=== PATIENT | female | born 1965 | race Caucasian/White ===

== ENCOUNTER 2019-10-24 11:43 | Emergency (ER) | payer OTHER, SELFPAY ==
--- NOTE | ~2019-10-24 | XR_ITS ---
XR foot LT 2V DATE: 10/24/2019 12:21 INDICATION: Dorsal laceration of foot TECHNIQUE: AP and lateral views COMPARISON: None FINDINGS: Status post bunionectomy. No fracture, dislocation, periosteal reaction or bone destruction, subcutaneous emphysema or radiopaq ue foreign body is evident. IMPRESSION: Status post bunionectomy No acute finding noted Reviewed, dictated and finalized at location A. UNICATIONS PROGRAM MANAGER
[2019-10-24 11:47] VITALS: BP 156/107; PULSE 98; RESP 18; TEMP 37; O2SAT 99
--- NOTE | 2019-10-24 12:04 | ED.WOUNDLAC ---
HPI - Wound/Laceration General Chief Complaint: Wound/Laceration Stated Complaint: Laceration to Left Foot Time Seen by Provider: 10/24/19 11:54 Source: patient Mode of arrival: ambulatory Limitations: no limitations History of Present Illness HPI narrative: This is a 54-year-old female that presents the emergency department for laceration sustained 14 hours prior to arrival. Reports last night a glass fell off of the kitchen island. Reports it landed on the top of her left foot. Reports a laceration to the area. Reports they cleaned the wound and tried to use it [id number] tissue adhesive. Reports the wound opened back up and she was having some bleeding. Denies fever, erythema, or abnormal drainage. Related Data Allergies Allergy/AdvReac Type Severity Reaction Status Date / Time No Known Allergies Verified 10/24/19 11:49 Review of Systems Review of Systems: Narrative: CONSTITUTIONAL: Denies fever SKIN: Reports laceration MUSCULOSKELETAL: Denies joint pain NEUROLOGIC: Denies numbness All systems reviewed & are unremarkable except as noted in HPI and below PMFSH Past Medical History Medical History (Updated 10/24/19 @ 14:15 by Lynn Bragg PA-C) History of osteopenia Social History Social History Smoking status: Never smoker Alcohol intake: current Exam Narrative: Exam Narrative: GENERAL: Well-appearing, well-nourished, and in no acute distress. HEAD: Normocephalic, atraumatic. EYES: EOMI. EXTREMITIES: Normal range of motion. No edema or obvious deformity. 2cm linear laceration into subcutaneous tissue over dorsal surface of foot SKIN: Warm, dry, no rash. NEURO: No focal deficits. Alert and oriented x3. PSYCH: Normal mood and affect Course Consultations Consultation #1: Spoke with Dr. Sierra about patient work-up who reports as long as I suture wound in 24 hours it is acceptable for closure Vital Signs Vital signs: Vital Signs Temperature 98.6 F 10/24/19 11:47 Pulse Rate 98 10/24/19 11:47 Respiratory Rate 18 10/24/19 11:47 Blood Pressure 156/107 H 10/24/19 11:47 Pulse Oximetry 99 10/24/19 11:47 Temperature 98.6 F 10/24/19 11:47 Pulse Rate 98 10/24/19 11:47 Respiratory Rate 18 10/24/19 11:47 Blood Pressure 156/107 H 10/24/19 11:47 Pulse Oximetry 99 10/24/19 11:47 MDM - Wound/Laceration MDM Narrative Medical decision making narrative: Patient presents to the emergency department for foot last patient sustained last night. Patient was updated on tetanus. Spoke with Dr. Sierra about patient and work-up. Patient's wound is 14 hours old, he reports I have 24 hours to suture wound. Patient's wound was thoroughly irrigated and closed with sutures. Patient will be started on a prophylactic antibiotic since this is a bit of an older wound. Patient and family were instructed on wound care. She is to follow-up with primary care doctor. She was given warnings to return to the ER Imaging Data Radiologist's impression: ITS Impressions Foot X-Ray 10/24/19 12:52 IMPRESSION: Status post bunionectomy No acute finding noted Critical Care Time Critical Care Time Critical Care Time: No Discharge Plan Discharge Clinical Impression: Laceration Patient Disposition: Home, Self-Care Condition: Stable Instructions: Antibiotic Form, Care For Your Stitches (ED), Laceration (ED) Additional Instructions: Return to the emergency department if you experience fever, redness or swelling of your wound, abnormal drainage from your wound, or any other symptoms that are concerning to you. Apply antibiotic ointment daily. Do not soak the wound. Clean with mild soap and water daily. Try to keep weight off of the left foot as much as possible to allow for healing Follow-up with your primary care doctor for suture removal in 10-14 days. Prescriptions: New cephalexin 500 mg capsule 500 mg PO Q6H 5 Days Qty: 20 RF: 0 Follow-up
[2019-10-24] MEDS: TETANUS,DIPHTHERIA,AC PERTUSSIS ADULT 0.5 ML (ADACEL) IM (12:24)
[2019-10-24] MEDS: LIDO 1%/EPINEPHRINE 1:100,000 20 ML VIAL INFILTRATE (12:41)
[2019-10-24 14:21] VITALS: BP 130/78; PULSE 70; RESP 18; O2SAT 98
== END 2019-10-24 14:25 | disposition home or self-care (01) ==
PROVIDERS: Emergency Provider Emergency Medicine; PCP Internal Medicine
DX: S91.312A Laceration without foreign body, left foot, initial encounter (principal); M85.80 Other specified disorders of bone density and structure, unspecified site; Z23 Encounter for immunization
CPT/HCPCS: 12001; 73620; 90471; 90715; 99283

== ENCOUNTER 2020-05-11 00:25 | Outpatient (CLI) | payer OTHER, SELFPAY ==
[2020-05-11 18:19] LABS: SARS-CoV-2 RNA PCR Negative
== END 2020-05-11 00:26 | disposition home or self-care (01) ==
LOC: ANHCOVIDDT 00:26
PROVIDERS: PCP Internal Medicine; Visit Provider Internal Medicine Gastroenterology
DX: Z01.812 Encounter for preprocedural laboratory examination (principal); Z20.828 Contact with and (suspected) exposure to other viral communicable diseases
CPT/HCPCS: 87635; C9803; U0003

== ENCOUNTER 2020-05-13 00:45 | Day surgery (SDC) | payer OTHER, SELFPAY ==
[2020-05-05 12:57] VITALS: BMI 23.4
[2020-05-13 06:33] VITALS: BP 150/82; PULSE 76; RESP 16; TEMP 36.8; O2SAT 96
[2020-05-13] MEDS: LACTATED RINGERS 1,000 ML 150 ML IV CONT (06:56)
--- NOTE | 2020-05-13 07:21 | P.HP_ITS ---
History of Present Illness History of Present Illness Consent: Risks, benefits, and alternatives have been discussed and questions answered. Patient agrees to proceed with procedure. Chief complaint: Neoplasm Screening Narrative: Daniela Ricks is a 54 year old W female referred for screening colonoscopy secondary history of colonic polyps last colonoscopy was 5 years ago. Patient is asymptomatic and there is no family history of colon polyps or colon cancer. [facility] Past Medical History Medical History History of osteopenia Social History Social History Smoking status: Never smoker Alcohol intake: current Gender identity (if verbalized by the patient): Female Sexual Orientation (if Verbalized by the Patient): Straight or Heterosexual Meds Home Medications and Allergies Home Medications Medication Instructions Recorded Confirmed Type alendronate 70 mg PO WEEKLY 05/05/20 05/13/20 History ergocalciferol (vitamin D2) 50,000 unit PO DAILY 05/05/20 05/13/20 History paroxetine HCl [Paxil] 20 mg PO DAILY 05/05/20 05/13/20 History Allergies Allergy/AdvReac Type Severity Reaction Status Date / Time No Known Allergies Verified 05/13/20 06:45 Vital Signs Vital Signs - 24 hr 05/13/20 06:33 Temperature 36.8 C Pulse Rate 76 Respiratory Rate 16 Blood Pressure 150/82 H Pulse Oximetry 96 Exam Const: Orientation/consciousness: patient oriented x3 Resp: Auscultation: clear to auscultation bilaterally Cardio: Rate: regular rate Rhythm: regular rhythm Heart sounds: no murmurs GI: GI Palp: Yes Soft to palpation, No Tenderness to palpation present (GI), Yes No hepatosplenomegaly present and No Palpable mass present Auscultation: normal bowel sounds Neuro: General: patient oriented x3 and no focal motor deficits Extrem: General: no pedal edema Assessment and Plan Additional Plan Screening colonoscopy secondary history of colonic polyps
--- NOTE | 2020-05-13 07:25 | WPDANESEPPF ---
Anes - Initial Pre Proc Eval Procedure: Operation Date: 05/13/20 08:00 Proposed Procedures p Screening Colonoscopy - Joe Mora MD Date/Time: 05/13/20 07:25 Surgeon: Joe Mora MD Pre Op Diagnosis: Neoplasm Screening Patient Data Age: 54 Gender: F Height: 5 ft 5 in Weight: 61.4 kg Last Vital Signs Temp 98.3 F 05/13/20 06:33 Pulse 76 05/13/20 06:33 Resp 16 05/13/20 06:33 BP 150/82 H 05/13/20 06:33 Pulse Ox 96 05/13/20 06:33 Allergies Allergy/AdvReac Type Severity Reaction Status Date / Time No Known Allergies Verified 05/13/20 06:45 Home Medications Medication Instructions Recorded Confirmed Type alendronate 70 mg PO WEEKLY 05/05/20 05/13/20 History ergocalciferol (vitamin D2) 50,000 unit PO DAILY 05/05/20 05/13/20 History paroxetine HCl [Paxil] 20 mg PO DAILY 05/05/20 05/13/20 History Patient hx anesthesia problems: none Family hx anesthesia problems: none PMFSH Past Medical History Medical History (Updated 05/13/20 @ 07:25 by Marquise Morgan MD) Healthy adult History of osteopenia Social History Social History Smoking status: Never smoker Alcohol intake: current Gender identity (if verbalized by the patient): Female Sexual Orientation (if Verbalized by the Patient): Straight or Heterosexual Anes - Eval Final PreProcedure Day of Procedure 05/13/20 07:25 Patient weight: normal Heart: regular rate and rhythm Lungs: clear to auscultation Airway: Mallampati scale class II Neurological: alert and oriented Last oral intake: >/= 8 hours ASA classification: I Emergent: no Anesthetic plan: proceed Anesthesia type and monitoring: general and standard monitoring Informed Consent: The patient's anesthetic plan and its attendant risks and benefits were discussed with the patient/family/POA. Questions were solicited and answers provided to the satisfaction of the patient/family/POA.
[2020-05-13 08:18] VITALS: BP 121/68; PULSE 64; RESP 16; O2SAT 98
[2020-05-13 08:28] VITALS: BP 129/80; PULSE 71; RESP 16; O2SAT 98
[2020-05-13 08:38] VITALS: BP 155/80; PULSE 73; RESP 18; O2SAT 98
[2020-05-13 08:55] VITALS: BP 150/80; PULSE 75; RESP 18; O2SAT 98
--- NOTE | 2020-05-13 09:08 | SUR.PHASEII ---
0845 pt very sleepy difficult to stay awake, pt states she didnt sleep alot during night fue to prep, pt assisted up to chair, drinking juice. 0855 pt awake and alert now, instructions given,
== END 2020-05-13 09:05 | disposition home or self-care (01) ==
PROVIDERS: PCP Internal Medicine; Visit Provider Internal Medicine Gastroenterology
PROC: 0DJD8ZZ Inspection of Lower Intestinal Tract, Via Natural or Artificial Opening Endoscopic (ICD-10-PCS; CPT 45378; principal; 2020-05-13 08:00)
DX: Z12.11 Encounter for screening for malignant neoplasm of colon (principal); Z86.010 Personal history of colon polyps; K57.30 Diverticulosis of large intestine without perforation or abscess without bleeding; K64.8 Other hemorrhoids
CPT/HCPCS: 45378; J2704; J7120

== ENCOUNTER → 2020-05-19 13:17 | Outpatient (CLI) | payer OTHER, SELFPAY ==
--- NOTE | ~2020-05-19 | DEXA_ITS ---
Bone Density Report Name: Daniela Ricks Age: 54 Sex: Female Ethnicity: White Date of : 1965 Indication: osteopenia; monitoring treatment; parental hip fracture; postmenopausal Referring Provider: LULU, KIBRY Iqbal Study: Bone densitometry was performed. Exam Date: May 19, 2020 Accession number: [id number] Bone Density: Region BMD T-score Z-score Classification AP Spine (L1-L4) 0.890 -1.4 -0.3 Osteopenia Femoral Neck (Left) 0.654 -1.8 -0.7 Osteopenia Total Hip (Left) 0.732 -1.7 -1.0 Osteopenia Femoral Neck (Right) 0.612 -2.1 -1.0 Osteopenia Total Hip (Right) 0.742 -1.6 -0.9 Osteopenia Total Hip Mean 0.737 -1.7 -1.0 Osteopenia World Health Organization criteria for BMD impression classify patients as: Normal (T-score at or above -1.0), Osteopenia (T-score between -1.0 and -2.5), or Osteoporosis (T-score at or below -2.5). 10-year Fracture Risk: FRAX not reported because: Treated for osteoporosis Previous Exams: Region Exam Age BMD T-score BMD Change BMD Change Date g/cm2 vs Baseline vs Previous AP Spine(L1-L4) 05/19/2020 54 0.890 -1.4 0.018 -0.016 01/31/2018 52 0.907 -1.3 0.034* 0.034* 12/21/2015 50 0.872 -1.6 Total Hip(Left) 05/19/2020 54 0.732 -1.7 0.025 -0.031* 01/31/2018 52 0.762 -1.5 0.055* 0.055* 12/21/2015 50 0.707 -1.9 Total Hip(Right) 05/19/2020 54 0.742 -1.6 0.032* -0.019 01/31/2018 52 0.761 -1.5 0.051* 0.051* 12/21/2015 50 0.711 -1.9 *Denotes significance at 95% confidence level, LSC for AP Spine = 0.022 g/cm2, LSC for Total Hip = 0.027 g/cm2 Clinical Information Provided by Patient: Parent has had a hip fracture Is being treated for osteoporosis Has used the following medications: Fosamax (i.e. alendronate), Vitamin D Patient maximum height was 65 Menopause Age: 43 No regular weight bearing exercise Drinks caffeinated beverages Onset of menses at age 14 Number of children 2 Impression: The patient has low bone mass, based on the Right Femoral Neck T-score. The patient has risk factors, including: parental hip fracture. The BMD for the Total Hip(Left) decreased, changing by -0.031 since the last DXA exam. Discussion: SIGNIFICANT BONE LOSS OBSERVED. Adherence to therapy (including calcium and vitamin D intake) should be assessed. If compliance is not a factor, review manage
== END ==
PROVIDERS: PCP Internal Medicine; Visit Provider Internal Medicine
DX: M81.0 Age-related osteoporosis without current pathological fracture (principal); M85.88 Other specified disorders of bone density and structure, other site; M85.852 Other specified disorders of bone density and structure, left thigh; M85.851 Other specified disorders of bone density and structure, right thigh
CPT/HCPCS: 77080

== ENCOUNTER → 2020-05-19 13:24 | Outpatient (CLI) | payer OTHER, SELFPAY ==
--- NOTE | ~2020-05-19 | MM_ITS ---
EXAMINATION: MM scrn ketty implant BI w guillaume HISTORY: Screening mammogram TECHNIQUE: Craniocaudal and mediolateral oblique 3-D tomosynthesis images with implant displacement a nd synthetic 2-D images were generated. Craniocaudal and mediolateral oblique views of the breasts wi thout implant displacement were obtained using full field digital mammography. CAD analysis was submi tted and interpreted. COMPARISON: Comparison to multiple prior studies sequentially, with oldest reviewed study dated 02/2016. BREAST PARENCHYMAL COMPOSITION: There are scattered areas of fibroglandular density. FINDINGS: There is no evidence of suspicious mass, calcification, or architectural distortion to sugg est malignancy in either breast. There has been no suspicious interval change. IMPRESSION: 1. No mammographic evidence of malignancy. 2. Recommend routine screening mammography in one year. BI-RADS Category 1: Negative Reviewed, dictated and finalized at location A.
== END ==
PROVIDERS: PCP Internal Medicine; Visit Provider Nurse Practitioner
DX: Z12.31 Encounter for screening mammogram for malignant neoplasm of breast (principal)
CPT/HCPCS: 77063; 77067

== ENCOUNTER → 2021-06-01 14:52 | Outpatient (CLI) | payer OTHER, SELFPAY ==
--- NOTE | ~2021-06-01 | MM_ITS ---
EXAMINATION: MM scrn ketty implant BI w guillaume HISTORY: Screening mammogram TECHNIQUE: Craniocaudal and mediolateral oblique 3-D tomosynthesis images with implant displacement a nd synthetic 2-D images were generated. Craniocaudal and mediolateral oblique views of the breasts wi thout implant displacement were obtained using full field digital mammography. CAD analysis was submi tted and interpreted. COMPARISON: Comparison to multiple prior studies sequentially, with oldest reviewed study dated 02/2016. BREAST PARENCHYMAL COMPOSITION: There are scattered areas of fibroglandular density. FINDINGS: There are bilateral subglandular saline implants. There is no evidence of suspicious mass, calcification, or architectural distortion to suggest malignancy in either breast. There has been no suspicious interval change. IMPRESSION: 1. No mammographic evidence of malignancy. 2. Recommend routine screening mammography in one year. BI-RADS Category 1: Negative Reviewed, dictated and finalized at location A.
== END ==
PROVIDERS: Visit Provider Nurse Practitioner
DX: Z12.31 Encounter for screening mammogram for malignant neoplasm of breast (principal)
CPT/HCPCS: 77063; 77067

== ENCOUNTER → 2022-06-08 13:16 | Outpatient (CLI) | payer OTHER, SELFPAY ==
--- NOTE | ~2022-06-08 | MM_ITS ---
EXAMINATION: MM scrn ketty implant BI w guillaume HISTORY: Screening mammogram TECHNIQUE: Craniocaudal and mediolateral oblique 3-D tomosynthesis images with implant displacement a nd synthetic 2-D images were generated. Craniocaudal and mediolateral oblique views of the breasts wi thout implant displacement were obtained using full field digital mammography. CAD analysis was submi tted and interpreted. COMPARISON: 06/01/2021, 05/19/2020, 03/24/2019 BREAST PARENCHYMAL COMPOSITION: The breasts are heterogeneously dense, which may obscure small masses . FINDINGS: There is no evidence of suspicious mass, calcification, or architectural distortion to sugg est malignancy in either breast. There has been no suspicious interval change. IMPRESSION: 1. No mammographic evidence of malignancy. 2. Recommend routine screening mammography in one year. BI-RADS Category 1: Negative Reviewed, dictated and finalized at location A.
--- NOTE | ~2022-06-08 | DEXA_ITS ---
Bone Density Report Name: LIEDA MULTANI Age: 56 Sex: Female Ethnicity: White Date of : 1965 Indication: osteopenia; monitoring treatment; parental hip fracture; postmenopausal Referring Provider: MELISSA, ANTONINA Study: Bone densitometry was performed. Exam Date: June 08, 2022 Accession number: [id number] Bone Density: Region BMD T-score Z-score Classification AP Spine (L1-L4) 0.921 -1.1 0.1 Osteopenia Femoral Neck (Left) 0.647 -1.8 -0.6 Osteopenia Total Hip (Left) 0.753 -1.5 -0.7 Osteopenia Femoral Neck (Right) 0.634 -1.9 -0.8 Osteopenia Total Hip (Right) 0.737 -1.7 -0.9 Osteopenia Total Hip Mean 0.745 -1.6 -0.8 Osteopenia World Health Organization criteria for BMD impression classify patients as: Normal (T-score at or above -1.0), Osteopenia (T-score between -1.0 and -2.5), or Osteoporosis (T-score at or below -2.5). 10-year Fracture Risk: FRAX not reported because: Treated for osteoporosis Previous Exams: Region Exam Age BMD T-score BMD Change BMD Change Date g/cm2 vs Baseline vs Previous AP Spine(L1-L4) 06/08/2022 56 0.921 -1.1 0.049* 0.031* 05/19/2020 54 0.890 -1.4 0.018 -0.016 01/31/2018 52 0.907 -1.3 0.034* 0.034* 12/21/2015 50 0.872 -1.6 Total Hip(Left) 06/08/2022 56 0.753 -1.5 0.046* 0.021 05/19/2020 54 0.732 -1.7 0.025 -0.031* 01/31/2018 52 0.762 -1.5 0.055* 0.055* 12/21/2015 50 0.707 -1.9 Total Hip(Right) 06/08/2022 56 0.737 -1.7 0.027 -0.005 05/19/2020 54 0.742 -1.6 0.032* -0.019 01/31/2018 52 0.761 -1.5 0.051* 0.051* 12/21/2015 50 0.711 -1.9 *Denotes significance at 95% confidence level, LSC for AP Spine = 0.022 g/cm2, LSC for Total Hip = 0.027 g/cm2 Clinical Information Provided by Patient: Parent has had a hip fracture Is being treated for osteoporosis Has used the following medications: Fosamax (i.e. alendronate), Vitamin D, MTV Patient maximum height was 65.0 Menopause Age: 43 No regular weight bearing exercise Drinks caffeinated beverages Onset of menses at age 15 Number of children 2 Impression: The patient has low bone mass, based on the Right Femoral Neck T-score. The patient has risk factors, including: parental hip fracture. No significant bone loss was observed. Discussion: MARIELLE
== END ==
PROVIDERS: PCP Internal Medicine; Visit Provider Nurse Practitioner
DX: Z12.31 Encounter for screening mammogram for malignant neoplasm of breast (principal); M85.88 Other specified disorders of bone density and structure, other site; M85.852 Other specified disorders of bone density and structure, left thigh; M85.851 Other specified disorders of bone density and structure, right thigh
CPT/HCPCS: 77063; 77067; 77080

== ENCOUNTER → 2023-04-10 08:42 | Outpatient (CLI) | payer OTHER, SELFPAY ==
--- NOTE | ~2023-04-10 | CT_ITS ---
EXAMINATION: CT abdomen wo con DATE: 04/10/2023 09:04 INDICATION: Abdominal pain, left flank pain, low back pain. TECHNIQUE: Computed tomography (CT) of the abdomen was performed without intravenous contrast. Automa candice exposure control and iterative reconstruction technique were employed. Exam dose: 164.46 mGy-cm total exam DLP. COMPARISON: None. FINDINGS: Status post bilateral augmentation mammoplasty. The lung bases are clear of infiltrate or consolidation. Normal heart size. No pericardial or pleural effusion. Very small sliding hiatal hernia. The liver, gallbladder, bile ducts, pancreatic duct, spleen, and adrenal glands and kidneys appear un remarkable on this limited noncontrast examination. Normal caliber of the abdominal aorta. No intraperitoneal or retroperitoneal mass lesion or adenopath y or ascites is noted. There is a prominent amount of fecal material in the colon but no bowel obstruction is evident. Small fat-containing umbilical hernia. The pelvis is excluded from this examination. Mild degenerative changes of the thoracic and lumbar spine. L1 limbus vertebra. No suspicious osteolytic or osteoblastic lesions are noted. IMPRESSION: Very small sliding hiatal hernia Reviewed, dictated and finalized at Location A. Reviewed, dictated and finalized at location B.
== END ==
PROVIDERS: PCP Internal Medicine; Visit Provider Internal Medicine
DX: R10.9 Unspecified abdominal pain (principal); K44.9 Diaphragmatic hernia without obstruction or gangrene
CPT/HCPCS: 74150

== ENCOUNTER → 2023-08-28 14:51 | Outpatient (CLI) | payer OTHER, SELFPAY ==
--- NOTE | ~2023-08-28 | MM_ITS ---
EXAMINATION: MM scrn ketty implant BI w guillaume HISTORY: Screening mammogram TECHNIQUE: Craniocaudal and mediolateral oblique 3-D tomosynthesis images with implant displacement a nd synthetic 2-D images were generated. Craniocaudal and mediolateral oblique views of the breasts wi thout implant displacement were obtained using full field digital mammography. CAD analysis was submi tted and interpreted. COMPARISON: Comparison to multiple prior studies sequentially, with oldest reviewed study dated 01/05. BREAST PARENCHYMAL COMPOSITION: The breasts are heterogeneously dense, which may obscure small masses . FINDINGS: There are bilateral subglandular saline implants. There is no evidence of suspicious mass, calcification, or architectural distortion to suggest malignancy in either breast. There has been no suspicious interval change. IMPRESSION: 1. No mammographic evidence of malignancy. 2. Recommend routine screening mammography in one year. BI-RADS Category 1: Negative Reviewed, dictated and finalized at location A. 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
== END ==
PROVIDERS: PCP Internal Medicine; Visit Provider Nurse Practitioner
DX: Z12.31 Encounter for screening mammogram for malignant neoplasm of breast (principal)
CPT/HCPCS: 77063; 77067

== ENCOUNTER 2024-08-04 10:38 | Emergency (ER) | payer OTHER, SELFPAY ==
--- NOTE | ~2024-08-04 | CT_ITS ---
CT abdomen pelvis w con Ordering provider: Ramirez Snider History: 58 years Female with . RLQ, suprapubic, LLQ tenderness, rule out appe . Comparison: None. Technique: CT abdomen and pelvis with IV and without oral contrast. Automated exposure control and it erative reconstruction technique were employed. The dose-length product was 226.90 mGy-cm. Findings: Bilateral breast implants. VISUALIZED LOWER CHEST: Normal. UPPER ABDOMINAL ORGANS: Liver: Normal. Gallbladder: Area of increased density seen posteriorly which may represent tiny stones or area of ki nking. Ultrasound evaluation advised. Spleen: Normal. Benign calcifications. Stomach/duodenum: Normal. Pancreas: Normal. Adrenals: Normal. Kidneys: Tiny cyst in the left kidney midpole PELVIC ORGANS: The bladder is normal. Uterus: Normal. BOWEL AND MESENTERY: Colon: Thickened wall of the sigmoid colon is seen which may indicate infiltrative process or colitis . Sigmoidoscopy is advised. No definite evidence of diverticulitis. Normal appendix. Small Bowel: Slightly thickened jejunal loops which may indicate enteritis. Otherwise, Normal. No obs truction. Peritoneum/mesentery: No free air or free fluid. No mesenteric lymphadenopathy. RETROPERITONEUM: Normal aorta. No retroperitoneal lymphadenopathy. MUSCULOSKELETAL: Superficial soft tissues: The superficial soft tissues are normal. Bones: Age appropriate degenerative changes of the spine. IMPRESSION: 1. Thickening in the sigmoid colon which may indicate infiltrative process. Colitis is also possible . Sigmoidoscopy is advised. 2. No evidence of appendicitis or intestinal obstruction. 3. Slightly thickened wall of the jejunal loops which may indicate enteritis. Follow-up advised. 4. Soft tissue density in the posterior aspect of the gallbladder which may be due to kinking or tin y stones. Ultrasound evaluation advised. Reviewed, dictated and finalized at location A. ACTER IMPERSONATOR IMPRESSION: 1. Thickening in the sigmoid colon which may indicate infiltrative process. Co litis is also possible. Sigmoidoscopy is advised. 2. No evidence of appendicitis or intestinal obstruction. 3. Slightly thickened wall of the jejunal loops which may indicate enteritis. Follow-up advised. 4. Soft tissue density in the posterior aspect of the gallbladder which may be due to kinking or tiny stones. Ultrasound evaluation advised.
[2024-08-04 10:47] VITALS: BP 169/110; PULSE 83; RESP 20; TEMP 36.3; O2SAT 100
[2024-08-04 11:07] LABS: Basophils Absolute Auto 0.1 K/mm3 (0.0-0.1); Eosinophils Absolute Auto 0.2 K/mm3 (0-0.3); Eosinophils Percent Auto 3.2 % (0-4.4); Hematocrit 42.3 % (37.0-47.0); Hemoglobin 14.2 g/dL (12.0-15.0); Immature Granulocyte Absolute 0.01 K/mm3 (0.00-0.031); Immature Granulocyte Percent A 0.2 % (0-0.5); Lymphocytes Absolute Auto 1.65 K/mm3 (0.9-3.2); Lymphocytes Percent Auto 27.8 % (18.3-44.2); Mean Corpuscular HGB Conc 33.6 g/dl (32-36); Mean Corpuscular Hemoglobin 30.9 pg (26-34); Mean Corpuscular Volume 92.2 fl (80-100); Monocytes Absolute Auto 0.5 K/mm3 (0.1-0.6); Monocytes Percent Auto 8.2 % (2.6-8.5); Neutrophils Absolute Auto 3.5 K/mm3 (1.3-6.7); Neutrophils Percent Auto 59.6 % (45.5-73.1); Platelet Count Result 273 k/mm3 (150-375); Red Blood Count 4.59 M/mm3 (4.2-5.4); Red Cell Distribution Width 12.4 % (11.5-14.5); White Blood Count 5.9 K/mm3 (4.5-10.0)
[2024-08-04 11:24] LABS: Alanine Aminotransferase 16 U/L (6-35); Albumin Level 4.6 g/dL (3.5-5.1); Alkaline Phosphatase 63 U/L (38-126); Anion Gap 6 mmol/L (4-12); Aspartate Amino Transferase 33 U/L (14-36); Bilirubin,Total 0.8 mg/dL (0.2-1.3); Blood Urea Nitrogen 12 mg/dL (7-17); Calcium 9.5 mg/dL (8.4-10.2); Carbon Dioxide 26 mmol/L (22-30); Chloride 104 mmol/L (98-107); Estimated CRCL calculation 64 ml/min; Estimated Glomerular Filt Rate > 60; Glucose 106 mg/dL (65-110); Lipase 169 U/L (23-300); Potassium 4.5 mmol/L (3.4-5.0); Sodium 136 mmol/L (137-145)
[2024-08-04 11:41] VITALS: O2SAT 99
--- NOTE | 2024-08-04 11:53 | ED_ITS ---
HPI - General Adult General Chief complaint: Abdominal Pain <JOSE Gallegos Last Filed: 08/04/24 16:40> Stated complaint: abdominal pain <Ramirez Snider PA-C - Last Filed: 08/04/24 16:40> Time Seen by Provider: 08/04/24 11:42 <Ramirez Snider PA-C - Last Filed: 08/04/24 16:40> Source: patient and other <JOSE Gallegos Last Filed: 08/04/24 16:40> Mode of arrival: ambulatory <JOSE Gallegos Last Filed: 08/04/24 16:40> Limitations: no limitations <JOSE Gallegos Last Filed: 08/04/24 16:40> History of Present Illness HPI narrative: This is a 58-year-old female who presents to the ED for chief complaint of lower abdominal pain beginning last night and worse today. Reports it is periumbilical and suprapubic. Starting to her more on the right side. Endorses lack of appetite and nausea but no vomiting. Unsure of any fevers at home. Denies any abdominal surgical history. States she has never had pain like this before. There is no association with eating. Denies urinary symptoms, back pain, chest pain, shortness of breath, cough. <JOSE Gallegos Last Filed: 08/04/24 16:40> Related Data Home medications: Home Medications Medication Instructions Recorded Confirmed alendronate 70 mg tablet 70 mg PO WEEKLY 05/05/20 05/13/20 ergocalciferol (vitamin D2) 1,250 50,000 unit PO DAILY 05/05/20 05/13/20 mcg (50,000 unit) capsule paroxetine HCl 20 mg tablet (Paxil) 20 mg PO DAILY 05/05/20 05/13/20 <JOSE Gallegos Last Filed: 08/04/24 16:40> Allergies/adverse reactions: Allergies Allergy/AdvReac Type Severity Reaction Status Date / Time No Known Allergies Verified 08/27/23 14:10 <JOSE Gallegos Last Filed: 08/04/24 16:40> Review of Systems Review of Systems: All systems as dictated in HPI <Ramirez Snider PA-C - Last Filed: 08/04/24 16:40> [facility] Past Medical History Medical History: Medical History (Updated 08/04/24 @ 14:27 by Ross Gregory MD) Healthy adult History of osteopenia <Ramirez Snider PA-C - Last Filed: 08/04/24 16:40> Social History Social History: Social History (System 08/27/23 @ 14:10 by Leah Maldonado) Smoking status: Never smoker Alcohol intake: current Gender identity (if verbalized by the patient): Female Sexual Orientation (if Verbalized by the Patient): Straight or Heterosexual <Ramirez Snider PA-C - Last Filed: 08/04/24 16:40> Exam Narrative: GENERAL: Appears in pain. Tearful on exam HEAD: Normocephalic, atraumatic. EYES: PERRLA and EOMI. ENT: Nares clear, no rhinorrhea or epistaxis. Mucous membranes moist. Oropharynx without tonsillar hypertrophy exudate or other lesions. NECK: Supple. No adenopathy or masses. CHEST: No respiratory distress. Clear to auscultation. No wheezes rales or rhonchi HEART: Regular rate and rhythm. No murmur heard. Normal peripheral pulses. ABDOMEN: Tenderness throughout the right lower quadrant, suprapubic abdomen, left lower quadrant. Soft, nondistended, normal active bowel sounds. Equivocal McBurney's point. Negative Sabillon sign. Negative psoas sign. Negative peritoneal signs MSK: Normal range of motion. No edema. SKIN: Warm, dry, no rash. NEURO: Alert and oriented x4. No focal deficits. PSYCH: Normal mood and affect. <Ramirez Snider PA-C - Last Filed: 08/04/24 16:40> Course Course Emergency Course: Patient resting comfortably. Informed of lab results which are normal. CT scan with thickening of the sigmoid colon recommending sigmoidoscopy and some areas of the small bowel that seem consistent with enteritis. Will place on Augmentin. Recommend follow-up with PCP and GI for possible sigmoidoscopy. <Ross Gregory MD - Last Filed: 08/04/24 14:28> Vital Signs Vital signs: Vital Signs Temperature 97.3 F L 08/04/24 10:47 Pulse Rate 83 08/04/24 10:47 Respiratory Rate 20 08/04/24 10:47 Blood Pressure 169/110 H 08/04/24 10:47 Pulse Oximetry 100 08/04/24 10:47 Oxygen Delivery Room Air 08/04/24 10:47 Temperature 98.1 F 08/04/24 14:36 Pulse Rate 76 08/04/24 14:36 Respiratory Rate 18 08/04/24 14:36 Blood Pressure 151/96 H 08/04/24 14:36 Pulse Oximetry 100 08/04/24 14:36 Oxygen Delivery Room Air 08/04/24 10:47 <Ramirez Snider PA-C - Last Filed: 08/04/24 16:40> Vital Signs Temperature 97.3 F L 08/04/24 10:47 Pulse Rate 83 08/04/24 10:47 Respiratory Rate 20 08/04/24 10:47 Blood Pressure 169/110 H 08/04/24 10:47 Pulse Oximetry 100 08/04/24 10:47 Oxygen Delivery Room Air 08/04/24 10:47 Temperature 98.1 F 08/04/24 14:36 Pulse Rate 76 08/04/24 14:36 Respiratory Rate 18 08/04/24 14:36 Blood Pressure 151/96 H 08/04/24 14:36 Pulse Oximetry 100 08/04/24 14:36 Oxygen Delivery Room Air 08/04/24 10:47 <Ross Gregory MD - Last Filed: 08/04/24 14:28> Medical Decision Making Vital Signs Vital Signs: Vital Signs Temperature 97.3 F L 08/04/24 10:47 Pulse Rate 83 08/04/24 10:47 Respiratory Rate 20 08/04/24 10:47 Blood Pressure 169/110 H 08/04/24 10:47 Pulse Oximetry 100 08/04/24 10:47 Oxygen Delivery Room Air 08/04/24 10:47 Temperature 98.1 F 08/04/24 14:36 Pulse Rate 76 08/04/24 14:36 Respiratory Rate 18 08/04/24 14:36 Blood Pressure 151/96 H 08/04/24 14:36 Pulse Oximetry 100 08/04/24 14:36 Oxygen Delivery Room Air 08/04/24 10:47 <Ramirez Snider PA-C - Last Filed: 08/04/24 16:40> Vital Signs Temperature 97.3 F L 08/04/24 10:47 Pulse Rate 83 08/04/24 10:47 Respiratory Rate 20 08/04/24 10:47 Blood Pressure 169/110 H 08/04/24 10:47 Pulse Oximetry 100 08/04/24 10:47 Oxygen Delivery Room Air 08/04/24 10:47 Temperature 98.1 F 08/04/24 14:36 Pulse Rate 76 08/04/24 14:36 Respiratory Rate 18 08/04/24 14:36 Blood Pressure 151/96 H 08/04/24 14:36 Pulse Oximetry 100 08/04/24 14:36 Oxygen Delivery Room Air 08/04/24 10:47 <Ross Gregory MD - Last Filed: 08/04/24 14:28> Lab Data Result diagrams: 08/04/24 10:58 08/04/24 10:58 <Ramirez Snider PA-C - Last Filed: 08/04/24 16:40> Labs: Lab Results 08/04/24 08/04/24 08/04/24 Range/Units 10:58 11:48 11:57 WBC 5.9 (4.5-10.0) K/mm3 RBC 4.59 (4.2-5.4) M/mm3 Hgb 14.2 (12.0-15.0) g/dL Hct 42.3 (37.0-47.0) % MCV 92.2 (80-100) fl MCH 30.9 (26-34) pg MCHC 33.6 (32-36) g/dl RDW 12.4 (11.5-14.5) % Plt Count 273 (150-375) k/mm3 MPV 9.0 (7.4-10.4) fl Immature Gran % (Auto) 0.2 (0-0.5) % Neut % (Auto) 59.6 (45.5-73.1) % Lymph % (Auto) 27.8 (18.3-44.2) % [place] % (Auto) 8.2 (2.6-8.5) % Eos % (Auto) 3.2 (0-4.4) % Baso % (Auto) 1.0 (0.2-1.2) % Lymph # (Auto) 1.65 (0.9-3.2) K/mm3 [place] # (Auto) 0.5 (0.1-0.6) K/mm3 Eos # (Auto) 0.2 (0-0.3) K/mm3 Baso # (Auto) 0.1 (0.0-0.1) K/mm3 Abs Immat Gran (auto) 0.01 (0.00-0.031) K/mm3 Absolute Neuts (auto) 3.5 (1.3-6.7) K/mm3 Absolute Nucleated RBC 0.000 (0.0-0.012) K/mm3 Nucleated RBC % 0.0 (0.0-0.2) % Sodium 136 L (137-145) mmol/L Potassium 4.5 (3.4-5.0) mmol/L Chloride 104 (98-107) mmol/L Carbon Dioxide 26 (22-30) mmol/L Anion Gap 6 (4-12) mmol/L BUN 12 (7-17) mg/dL Creatinine 0.70 (0.7-1.0) mg/dL Estim Creat Clear Calc 64 ml/min Estimated GFR > 60 (59 - ) Glucose 106 (65-110) mg/dL Calcium 9.5 (8.4-10.2) mg/dL Total Bilirubin 0.8 (0.2-1.3) mg/dL AST 33 (14-36) U/L ALT 16 (6-35) U/L Alkaline Phosphatase 63 (38-126) U/L Total Protein 8.0 (6.3-8.2) g/dL Albumin 4.6 (3.5-5.1) g/dL Lipase 169 (23-300) U/L Urine Color Yellow (Yellow) Urine Appearance Clear (Clear) Urine pH 8.5 (5.0-9.0) Ur Specific [place] 1.014 (1.001-1.035) Urine Protein Negative (Negative) mg/dL Urine Glucose (UA) Negative (Negative) mg/dL Urine Ketones 2+ H (Negative) mg/dL Ur Blood (Man) Negative (Negative) Urine Nitrate Negative (Negative) Urine Bilirubin Negative (Negative) Urine Urobilinogen 1.0 (<2.0) mg/dL Leukocyte Esterase Rfl Trace H (Negative) ENRIQUE/UL Urine RBC 0-2 (0-2) /hpf Urine WBC 0-5 (0-3) /hpf Ur Squamous Epith Cells None seen (Few) /hpf Urine Bacteria None seen /hpf Urine Casts 0-2 POC Urine HCG, Qual Negative (Negative) <Ramirez Snider PA-C - Last Filed: 08/04/24 16:40> Lab Results 08/04/24 08/04/24 08/04/24 Range/Units 10:58 11:48 11:57 WBC 5.9 (4.5-10.0) K/mm3 RBC 4.59 (4.2-5.4) M/mm3 Hgb 14.2 (12.0-15.0) g/dL Hct 42.3 (37.0-47.0) % MCV 92.2 (80-100) fl MCH 30.9 (26-34) pg MCHC 33.6 (32-36) g/dl RDW 12.4 (11.5-14.5) % Plt Count 273 (150-375) k/mm3 MPV 9.0 (7.4-10.4) fl Immature Gran % (Auto) 0.2 (0-0.5) % Neut % (Auto) 59.6 (45.5-73.1) % Lymph % (Auto) 27.8 (18.3-44.2) % [place] % (Auto) 8.2 (2.6-8.5) % Eos % (Auto) 3.2 (0-4.4) % Baso % (Auto) 1.0 (0.2-1.2) % Lymph # (Auto) 1.65 (0.9-3.2) K/mm3 [place] # (Auto) 0.5 (0.1-0.6) K/mm3 Eos # (Auto) 0.2 (0-0.3) K/mm3 Baso # (Auto) 0.1 (0.0-0.1) K/mm3 Abs Immat Gran (auto) 0.01 (0.00-0.031) K/mm3 Absolute Neuts (auto) 3.5 (1.3-6.7) K/mm3 Absolute Nucleated RBC 0.000 (0.0-0.012) K/mm3 Nucleated RBC % 0.0 (0.0-0.2) % Sodium 136 L (137-145) mmol/L Potassium 4.5 (3.4-5.0) mmol/L Chloride 104 (98-107) mmol/L Carbon Dioxide 26 (22-30) mmol/L Anion Gap 6 (4-12) mmol/L BUN 12 (7-17) mg/dL Creatinine 0.70 (0.7-1.0) mg/dL Estim Creat Clear Calc 64 ml/min Estimated GFR > 60 (59 - ) Glucose 106 (65-110) mg/dL Calcium 9.5 (8.4-10.2) mg/dL Total Bilirubin 0.8 (0.2-1.3) mg/dL AST 33 (14-36) U/L ALT 16 (6-35) U/L Alkaline Phosphatase 63 (38-126) U/L Total Protein 8.0 (6.3-8.2) g/dL Albumin 4.6 (3.5-5.1) g/dL Lipase 169 (23-300) U/L Urine Color Yellow (Yellow) Urine Appearance Clear (Clear) Urine pH 8.5 (5.0-9.0) Ur Specific [place] 1.014 (1.001-1.035) Urine Protein Negative (Negative) mg/dL Urine Glucose (UA) Negative (Negative) mg/dL Urine Ketones 2+ H (Negative) mg/dL Ur Blood (Man) Negative (Negative) Urine Nitrate Negative (Negative) Urine Bilirubin Negative (Negative) Urine Urobilinogen 1.0 (<2.0) mg/dL Leukocyte Esterase Rfl Trace H (Negative) ENRIQUE/UL Urine RBC 0-2 (0-2) /hpf Urine WBC 0-5 (0-3) /hpf Ur Squamous Epith Cells None seen (Few) /hpf Urine Bacteria None seen /hpf Urine Casts 0-2 POC Urine HCG, Qual Negative (Negative) <Ross Gregory MD - Last Filed: 08/04/24 14:28> Imaging Data Radiologist's impression: ITS Impressions Abdomen/Pelvis CT 08/04/24 13:24 IMPRESSION: 1. Thickening in the sigmoid colon which may indicate infiltrative process. C olitis is also possible. Sigmoidoscopy is advised. 2. No evidence of appendicitis or intestinal obstruction. 3. Slightly thickened wall of the jejunal loops which may indicate enteritis. Follow-up advised. 4. Soft tissue density in the posterior aspect of the gallbladder which may be due to kinking or tiny stones. Ultrasound evaluation advised. <Ross Gregory MD - Last Filed: 08/04/24 14:28> Discharge Plan Discharge Clinical Impression: Enteritis, Sigmoid thickening <Ramirez Snider PA-C - Last Filed: 08/04/24 16:40> Patient Disposition: Home, Self-Care <Ramirez Snider PA-C - Last Filed: 08/04/24 16:40> Condition: Stable <Ramirez Snider PA-C - Last Filed: 08/04/24 16:40> Instructions: Gastroenteritis (ED), Colitis (ED) <Ramirez Snider PA-C - Last Filed: 08/04/24 16:40> Additional Instructions: Return to the emergency department if you develop severe abdominal pain, severe nausea and vomiting to the point where you are unable to keep down fluids, if you develop chest pain or difficulty breathing, blood in your stool, dizziness or fainting, or if you develop any other new or concerning symptoms as these could be signs of more serious medical illness. Try to stay well hydrated. You should speak with your Primary Doctor or [employer] Knitting [employer] Operator about the thickened sigmoid colon and whether you need to undergo sigmoidoscopy. <Ramirez Snider PA-C - Last Filed: 08/04/24 16:40> Prescriptions: New dicyclomine 20 mg tablet 20 mg PO QID Qty: 20 0RF amoxicillin-pot clavulanate 875-125 mg tablet 1 tablet PO Q12H Qty: 20 0RF No Action alendronate 70 mg Tablet 70 mg PO WEEKLY paroxetine HCl [Paxil] 20 mg tablet 20 mg PO DAILY ergocalciferol (vitamin D2) 1,250 mcg (50,000 unit) capsule 50,000 unit PO DAILY <Ramirez Snider PA-C - Last Filed: 08/04/24 16:40> Follow-up/Referrals: Carmichael,Josh Iqbal MD [Primary Care Provider] - 1 Week <Ramirez Snider PA-C - Last Filed: 08/04/24 16:40>
[2024-08-04 11:58] VITALS: BP 193/93; PULSE 76; RESP 20; O2SAT 98
[2024-08-04 12:00] LABS: BEDSIDEPREGUCG Negative (Negative)
[2024-08-04 12:04] LABS: Add Urine Microscopic? YES; Appearance Urine Clear (Clear); Bacteria Urine None Seen /hpf; Bilirubin Urine Negative (Negative); Blood Urine Negative (Negative); Color Urine Yellow (Yellow); Glucose Urine UA Negative (Negative); Ketones Urine 2+ mg/dL (Negative); Leukocyte Esterase Ur Trace LEU/UL (Negative); Nitrate Urine Negative (Negative); Non Pathogenic Casts 0-2; Protein Urine Negative (Negative); RBC Urine 0-2 /hpf (0-2); Specific Grav Ur 1.014 (1.001-1.035); Squamous Epithelial Cell Urine None Seen /hpf (Few); WBC Urine 0-5 /hpf (0-3); pH Urine 8.5 (5.0-9.0)
[2024-08-04] MEDS: ONDANSETRON INJ 4 MG/2 ML VIAL IV PUSH (12:05)
[2024-08-04] MEDS: SODIUM CHLORIDE 0.9% IV 1,000 ML 999 ML IV CONT (12:05)
[2024-08-04] MEDS: HYDROmorphone HCL INJ (*CRX) 1 MG/ML SYR 0.5 MG IV PUSH (12:05)
[2024-08-04 13:47] VITALS: BP 188/94; O2SAT 97
[2024-08-04 14:36] VITALS: BP 151/96; PULSE 76; RESP 18; TEMP 36.7; O2SAT 100
== END 2024-08-04 14:37 | disposition home or self-care (01) ==
PROVIDERS: Emergency Medicine; Emergency Provider Emergency Medicine; PCP Internal Medicine
DX: K52.9 Noninfective gastroenteritis and colitis, unspecified (principal); R93.3 Abnormal findings on diagnostic imaging of other parts of digestive tract; M85.80 Other specified disorders of bone density and structure, unspecified site
CPT/HCPCS: 36415; 74177; 80053; 81001; 81025; 83690; 85025; 96361; 96374; 96375; 99284; J1171; J2405; J7030; Q9967

== ENCOUNTER 2024-08-20 13:12 | Outpatient (CLI) | payer OTHER, SELFPAY ==
--- NOTE | ~2024-08-20 | DEXA_ITS ---
Bone Density Report Name: LEIDA MULTANI Age: 58 Sex: Female Ethnicity: White Date of : 1965 Indication: postmenopausal; screening for osteoporosis; parental hip fracture; Referring Provider: MELISSA, ANTONINA Study: Bone densitometry was performed. Exam Date: August 20, 2024 Accession number: [id number] Bone Density: Region BMD T-score Z-score Classification AP Spine(L2, L3, L4) 0.918 -1.5 0.0 Osteopenia Femoral Neck (Left) 0.609 -2.2 -0.9 Osteopenia Total Hip (Left) 0.819 -1.0 -0.1 Normal Femoral Neck (Right) 0.621 -2.1 -0.8 Osteopenia Total Hip (Right) 0.854 -0.7 0.2 Normal Total Hip Mean 0.837 -0.9 0.1 Normal World Health Organization criteria for BMD impression classify patients as: Normal (T-score at or above -1.0), Osteopenia (T-score between -1.0 and -2.5), or Osteoporosis (T-score at or below -2.5). 10-year Fracture Risk: FRAX not reported because: Treated for osteoporosis Clinical Information Provided by Patient: Parent has had a hip fracture Is being treated for osteoporosis Has used the following medications: Fosamax (i.e. alendronate), Vitamin D Patient maximum height was 65 Menopause Age: 51 No regular weight bearing exercise Drinks caffeinated beverages Onset of menses at age 15 Number of children 2 Impression: The patient has low bone mass, based on the Left Femoral Neck T-score. The patient has risk factors, including: parental hip fracture. Discussion: It is important to ask patients whether they are taking their medications and to encourage continued and appropriate compliance with their osteoporosis therapies to reduce fracture risk. It is also important to review their risk factors and encourage appropriate calcium and vitamin D intakes, exercise, fall prevention and other lifestyle measures. Follow-Up: Consider a repeat BMD and Vertebral Fracture Assessment (VFA) exam in 2 years or sooner if medically necessary, to reassess this patient's status. Reported by: RONNIE on 08/20/2024 2:07:00 PM. Reviewed, dictated and finalized at location AMariah ROSADO
== END 2024-08-20 13:13 | disposition home or self-care (01) ==
LOC: ANHIMG 13:14
PROVIDERS: PCP Internal Medicine; Visit Provider Nurse Practitioner
DX: M85.88 Other specified disorders of bone density and structure, other site (principal); M85.852 Other specified disorders of bone density and structure, left thigh; M85.851 Other specified disorders of bone density and structure, right thigh
CPT/HCPCS: 77080

== ENCOUNTER 2024-08-31 13:51 | Outpatient (CLI) | payer OTHER, SELFPAY ==
--- NOTE | ~2024-08-31 | MM_ITS ---
EXAMINATION: MM scrn ketty implant BI w guillaume HISTORY: Screening TECHNIQUE: Craniocaudal and mediolateral oblique 3-D tomosynthesis images with implant displacement a nd synthetic 2-D images were generated. Craniocaudal and mediolateral oblique views of the breasts wi thout implant displacement were obtained using full field digital mammography. CAD analysis was submi tted and interpreted. COMPARISON: Comparison to multiple prior studies sequentially, with oldest reviewed study dated 01/31. BREAST PARENCHYMAL COMPOSITION: Dense: The breasts are heterogeneously dense, which may obscure small masses FINDINGS: There is no evidence of suspicious mass, calcification, or architectural distortion to sugg est malignancy in either breast. There has been no suspicious interval change. IMPRESSION: 1. No mammographic evidence of malignancy. 2. Recommend routine screening mammography in one year. BI-RADS Category 1: Negative Reviewed, dictated and finalized at location B. Y BUTCHER
== END 2024-08-31 13:52 | disposition home or self-care (01) ==
LOC: MICIMG 13:51
PROVIDERS: PCP Internal Medicine; Visit Provider Nurse Practitioner
DX: Z12.31 Encounter for screening mammogram for malignant neoplasm of breast (principal)
CPT/HCPCS: 77063; 77067